=== PATIENT | male | born 1950 | race Hispanic/Latino ===

== ENCOUNTER → 2021-01-02 | Outpatient (CLI) | payer OTHER, MEDICARE ==
[~2021-01-02] VITALS: Ht 165.1 cm; Wt 79.4 kg
[2021-01-02] MEDS: REGADENOSON 0.4 MG/5 ML PF SYG IVP SCH (15:06)
== END | disposition home or self-care (01) ==
LOC: SHCH 08:53
PROVIDERS: ATTEND Internal Medicine Cardiovascular Disease
DX: R06.09 Other forms of dyspnea (principal)
CPT/HCPCS: 78452; 93017; 96374; A9500 ×2; J2785

== ENCOUNTER 2021-03-13 07:29 | Inpatient (IN) | payer OTHER, MEDICARE ==
[2021-03-09 10:11] LABS: BASOPHILS % (AUTO) 0.8 % (0.0-5.0); EOSINOPHILS % (AUTO) 3.6 % (0.0-8.0); HEMATOCRIT 43.7 % (42-54); MEAN CORPUSCULAR HEMOGLOBIN 31.8 pg (27.0-33.0); MEAN CORPUSCULAR HGB CONC 34.1 g/dL (32.0-36.0); MEAN CORPUSCULAR VOLUME 93.2 fL (79-99); MONOCYTES % (AUTO) 9.1 % (3.0-13.0); NEUTROPHILS % (AUTO) 54.1 % (40.0-77.0); PLATELET COUNT (AUTO) 238 K/uL (130-400); RED BLOOD CELL COUNT(AUTO) 4.69 MIL/uL (4.50-6.20); RED CELL DISTRIBUTION WIDTH 13.6 % (11.0-15.5); WHITE BLOOD COUNT (AUTO) 7.6 K/uL (4.8-10.8)
[2021-03-09 10:12] LABS: APPEARANCE,URINE Clear (CLEAR); BILIRUBIN,URINE Negative (NEGATIVE); COLOR,URINE Yellow (YELLOW); GLUCOSE, URINE (UA) Negative (NEGATIVE); KETONES,URINE Trace mg/dL (NEGATIVE); LEUKOCYTE ESTERASE ,URINE Negative (NEGATIVE); NITRATE,URINE Negative (NEGATIVE); OCCULT BLOOD,URINE Negative (NEGATIVE); PROTEIN,URINE Negative (NEGATIVE)
[2021-03-09 10:32] LABS: PROTHROMBIN TIME 10.9 SEC (9.6-11.6)
[2021-03-09 10:33] LABS: PARTIAL THROMBOPLASTIN TIME 25.8 SEC (26.3-35.5)
[2021-03-09 10:34] LABS: CREATININE 1.1 mg/dL (0.5-1.5)
[2021-03-09 10:37] LABS: BACTERIA,URINE Rare /HPF (None Seen); RBC,URINE None Seen /HPF (0-1)
[2021-03-09 10:38] LABS: SQUAMOUS EPITHELIAL CELL,UR None Seen /HPF (0-2); WBC,URINE 0-1 /HPF (0-1)
[2021-03-12 09:55] VITALS: BP 158/76
[2021-03-13] VITALS (19 sets, daily range): BP systolic 108–250; BP diastolic 53–128
[~2021-03-13] VITALS: Ht 165.1 cm; Wt 75.3 kg
[~2021-03-13 07:29] MED LIST: 0.9% NACL 500ML IV.SOLN 500 ML IV SCH; AEC81 PO; ATOR40TA71 PO; IOHEXOL-350 75 ML VIAL IV ONE; ISOS30TA11 PO; LEVO50CA4 PO; LISI40TA9 PO; METO25TA6 PO; OMEP40CA21 PO
[2021-03-13] MEDS ORDERED: 0.9%NACL 1000ML 1,000 ML IV ONE (09:19)
[2021-03-13] MEDS ORDERED: NICARDIPINE 25MG INJ IV ONE (10:15)
[2021-03-13] MEDS ORDERED: NITROGLYCERIN 2 MG VIAL IV ONE (10:15)
[2021-03-13] MEDS ORDERED: SODIUM BICARB 50MEQ 50ML VIAL 50 ML ONE (10:15)
[2021-03-13] MEDS ORDERED: HEPARIN 10,000 UNIT/10ML (1,000 UNIT/ML) VIAL ONE ×3 (10:15→15:46)
[2021-03-13] MEDS ORDERED: IOHEXOL 350 MG/ML 100ML INFUS..BTL IV ONE (10:16)
[2021-03-13] MEDS ORDERED: LIDOCAINE HCL 400MG/20ML VIAL ONE (10:16)
[2021-03-13] MEDS ORDERED: MIDAZOLAM HCL 1 MG/ML 2ML VIAL ONE ×2 (10:48→14:21)
[2021-03-13] MEDS ORDERED: FENTANYL CITRATE PF 50 MCG/1 ML 2ML VIAL ONE (10:49)
[2021-03-13] MEDS ORDERED: 0.9%NACL 1000ML 1,000 ML IV SCH ×2 (12:00→18:00)
[2021-03-13] MEDS ORDERED: NITROGLYCERIN 0.4 MG SL TAB SL PRN (12:00)
[2021-03-13] MEDS ORDERED: CEFAZOLIN SODIUM 1 GM VIAL IVP PRN (13:30)
[2021-03-13] MEDS ORDERED: NOREPINEPHRINE BITARTRATE 8 MG in DEXTROSE 5%-WATER 250 ML IV PRN (13:30)
[2021-03-13] MEDS ORDERED: AMINOCAPROIC ACID 5,000MG VIAL 15,000 MG in 0.9% NACL 500ML IV.SOLN 420 ML IV PRN (13:30)
[2021-03-13] MEDS ORDERED: EPINEPHRINE PF 1MG AMP 10 MG in 0.9% NACL 250ML 240 ML IV PRN (13:30)
[2021-03-13] MEDS ORDERED: PAPAVERINE HCL 30 MG/ML 2ML VIAL ONE (13:45)
[2021-03-13] MEDS ORDERED: CEFAZOLIN SODIUM 1 GM VIAL ONE ×2 (13:45→15:16)
[2021-03-13 13:54] LABS: HEMATOCRIT 39.9 % (42-54); MEAN CORPUSCULAR HEMOGLOBIN 31.8 pg (27.0-33.0); MEAN CORPUSCULAR HGB CONC 34.8 g/dL (32.0-36.0); MEAN CORPUSCULAR VOLUME 91.3 fL (79-99); RED BLOOD CELL COUNT(AUTO) 4.37 MIL/uL (4.50-6.20); RED CELL DISTRIBUTION WIDTH 13.6 % (11.0-15.5); WHITE BLOOD COUNT (AUTO) 7.6 K/uL (4.8-10.8)
[2021-03-13 14:06] LABS: INR 1.09 (0.85-1.15); PROTHROMBIN TIME 11.8 SEC (9.6-11.6)
[2021-03-13 14:08] LABS: PARTIAL THROMBOPLASTIN TIME 41.3 SEC (26.3-35.5)
[2021-03-13 14:13] LABS: HEMOGLOBIN A1C 5.9 % (4.0-6.0)
[2021-03-13 14:14] LABS: ALBUMIN 3.7 g/dL (3.5-5.0); BILIRUBIN,TOTAL 0.8 mg/dL (0.2-1.0); CREATININE 1.1 mg/dL (0.5-1.5); POTASSIUM 3.8 mmol/L (3.5-5.1)
[2021-03-13] MEDS ORDERED: PROTAMINE SULFATE 10 MG/ML 25ML VIAL IV ONE (14:20)
[2021-03-13] MEDS ORDERED: ESMOLOL HCL 10 MG/ML 10 ML VIAL ONE (14:20)
[2021-03-13] MEDS ORDERED: SODIUM BICARB 50MEQ 50ML VIAL 150 ML ONE (14:20)
[2021-03-13] MEDS ORDERED: AMINOCAPROIC ACID 5,000MG VIAL ONE (14:20)
[2021-03-13] MEDS ORDERED: EPINEPHRINE PF 1MG AMP ONE (14:20)
[2021-03-13] MEDS ORDERED: NOREPINEPHRINE BITARTRATE 1 MG/1 ML ML IV ONE (14:20)
[2021-03-13] MEDS ORDERED: LIDOCAINE PF 100MG/5ML (2%) SYRINGE 5ML ONE ×2 (14:20→14:21)
[2021-03-13] MEDS ORDERED: FENTANYL CITRATE PF 50 MCG/1 ML 20ML VIAL IJ ONE (14:21)
[2021-03-13] MEDS ORDERED: SUCCINYLCHOLINE CHLORIDE 20 MG/ML 10 ML VIAL ONE (14:21)
[2021-03-13] MEDS ORDERED: ETOMIDATE 20MG VIAL ONE (14:21)
[2021-03-13] MEDS ORDERED: PROPOFOL 10 MG/ML 20ML VIAL IV ONE (14:21)
[2021-03-13] MEDS ORDERED: ROCURONIUM 10MG/1ML SYR 10 MG/ML ML ONE (14:21)
[2021-03-13] MEDS ORDERED: SODIUM BICARB 50MEQ 50ML VIAL 300 ML ONE (14:22)
[2021-03-13] MEDS ORDERED: AMIODARONE 150MG VIAL ONE (15:15)
[2021-03-13] MEDS ORDERED: GLYCOPYRROLATE 1 MG/5 ML SYRINGE ONE (15:40)
[2021-03-13] MEDS ORDERED: ATROPINE 0.4MG VIAL IJ ONE (15:40)
[2021-03-13 15:42] LABS: ABG BASE EXCESS -2.9 mmol/L (-2.0-3.0); ABG HCO3 24.5 mmol/L (21.0-28.0); ABG OXYGEN SATURATION 99.5 % (95.0-99.0); ABG PCO2 53 mmHg (35-48)
[2021-03-13] MEDS ORDERED: VASOPRESSIN 20 UNITS/ML 1ML VIAL ONE (16:32)
[2021-03-13 17:57] LABS: ABG BASE EXCESS -0.7 mmol/L (-2.0-3.0); ABG HCO3 22.2 mmol/L (21.0-28.0); ABG OXYGEN SATURATION 98.9 % (95.0-99.0); ABG PCO2 31 mmHg (35-48)
[2021-03-13] MEDS ORDERED: 0.9%NACL 10ML VIAL IVP PRN (18:00)
[2021-03-13] MEDS ORDERED: ASPIRIN 81MG CHEW TAB NG ONE (18:00)
[2021-03-13] MEDS ORDERED: ONDANSETRON 4MG INJ IV PRN (18:00)
[2021-03-13] MEDS ORDERED: PROPOFOL 1000 MG/100 ML 100 ML IV PRN (18:00)
[2021-03-13] MEDS ORDERED: NITROGLYCERIN 50MG/D5W 250ML 250 BOT IV SCH (18:00)
[2021-03-13] MEDS ORDERED: MORPHINE 2 MG SYG IV PRN (18:00)
[2021-03-13] MEDS ORDERED: AMINOCAPROIC ACID 5,000MG VIAL 15,000 MG in 0.9% NACL 250ML 250 ML IV SCH (18:00)
[2021-03-13] MEDS ORDERED: INSULIN REGULAR, HUMAN 3ML 100 UNIT in 0.9%NACL 100ML 99 ML IV SCH ×2 (18:00)
[2021-03-13] MEDS ORDERED: ACETAMINOPHEN 650 MG SUPPOSITORY RC PRN (18:00)
[2021-03-13] MEDS ORDERED: 0.9% NACL 500ML IV.SOLN 500 ML IV SCH (18:00)
[2021-03-13] MEDS ORDERED: DEXTROSE 50%-WATER 50 ML DISP.SYRIN IV PRN (18:00)
[2021-03-13] MEDS ORDERED: ALBUMIN (HUMAN) 5% 250 ML IV PRN (18:00)
[2021-03-13] MEDS ORDERED: GLUCAGON 1MG KIT 1 MG ML IM PRN (18:00)
[2021-03-13] MEDS ORDERED: TRAMADOL HCL 50 MG TABLET PO PRN (18:00)
[2021-03-13] MEDS ORDERED: POTASSIUM PHOS 15 mMOL+NS250ML 250 ML IV PRN (18:00)
[2021-03-13] MEDS ORDERED: EPINEPHRINE PF 1MG AMP 10 MG in DEXTROSE 5%-WATER 250 ML IV PRN (18:00)
[2021-03-13] MEDS ORDERED: NOREPINEPHRIN 4MG/NS 250ML 250 ML IV PRN (18:00)
[2021-03-13 18:40] LABS: HEMATOCRIT 34.6 % (42-54); MEAN CORPUSCULAR HEMOGLOBIN 31.9 pg (27.0-33.0); MEAN CORPUSCULAR HGB CONC 35.3 g/dL (32.0-36.0); MEAN CORPUSCULAR VOLUME 90.6 fL (79-99); RED BLOOD CELL COUNT(AUTO) 3.82 MIL/uL (4.50-6.20); RED CELL DISTRIBUTION WIDTH 13.5 % (11.0-15.5); WHITE BLOOD COUNT (AUTO) 12.5 K/uL (4.8-10.8)
[2021-03-13 18:56] LABS: CREATININE 1.1 mg/dL (0.5-1.5); INR 1.2 (0.85-1.15); MAGNESIUM 1.4 mg/dL (1.80-2.40); PHOSPHORUS 3.9 mg/dL (2.5-4.9); POTASSIUM 3.4 mmol/L (3.5-5.1); PROTHROMBIN TIME 12.9 SEC (9.6-11.6)
[2021-03-13 18:57] LABS: PARTIAL THROMBOPLASTIN TIME 23.1 SEC (26.3-35.5)
[2021-03-13 19:01] LABS: ABG BASE EXCESS -2.1 mmol/L (-2.0-3.0); ABG HCO3 21.6 mmol/L (21.0-28.0); ABG OXYGEN SATURATION 98.5 % (95.0-99.0); ABG PCO2 34 mmHg (35-48)
[2021-03-13] MEDS: MORPHINE 2 MG SYG IV PRN ×3 (19:09→23:52)
[2021-03-13] MEDS ORDERED: NICARDIPINE 25MG INJ 100 MG in 0.9%NACL 100ML 60 ML IV SCH (19:30)
[2021-03-13] MEDS: POTASSIUM CHLORIDE 20MEQ/100ML 100 ML IV PRN ×3 (19:39→23:49)
[2021-03-13] MEDS: SODIUM BICARB 50MEQ 50ML VIAL IV PRN ×3 (19:55→21:14)
[2021-03-13] MEDS: MAGNESIUM 2GM PREMIX 50ML 50 ML IV PRN ×2 (20:23→23:01)
[2021-03-13] MEDS ORDERED: ASPIRIN 81MG CHEW TAB ONE (20:24)
[2021-03-13] MEDS: FAMOTIDINE 20MG VIAL IV SCH (20:25)
[2021-03-13] MEDS: ATORVASTATIN 40 MG TABLET PO SCH (20:25)
[2021-03-13] MEDS: ACETAMINOPHEN 325 MG TAB PO PRN (20:40)
[2021-03-13 20:56] LABS: ABG BASE EXCESS -1.2 mmol/L (-2.0-3.0); ABG HCO3 24.1 mmol/L (21.0-28.0); ABG PCO2 42 mmHg (35-48)
[2021-03-13] MEDS ORDERED: METOPROLOL TARTRATE 25 MG TAB PO SCH (21:00)
[2021-03-13] MEDS ORDERED: CALCIUM GLUC 1GM/10ML VIAL ONE ×2 (21:11→23:56)
[2021-03-13] MEDS: CALCIUM GLUC 1GM 1 GM in 0.9%NACL 50ML 50 ML IV PRN ×3 (21:22→23:57)
[2021-03-13] MEDS ORDERED: ALBUMIN (HUMAN) 5% 250 ML IV ONE (21:57)
[2021-03-13 22:30] LABS: ABG HCO3 26.1 mmol/L (21.0-28.0); ABG PCO2 39 mmHg (35-48)
[2021-03-13 22:33] LABS: ABG BASE EXCESS 2.2 mmol/L (-2.0-3.0); ABG PCO2 38 mmHg (35-48)
[2021-03-13] MEDS: CEFAZOLIN SODIUM 1 GM VIAL IV SCH (22:47)
[2021-03-13 23:39] LABS: ABG BASE EXCESS -0.7 mmol/L (-2.0-3.0); ABG HCO3 24.5 mmol/L (21.0-28.0); ABG OXYGEN SATURATION 97.9 % (95.0-99.0); ABG PCO2 42 mmHg (35-48)
[2021-03-14] VITALS (35 sets, daily range): BP systolic 101–176; BP diastolic 53–84
[2021-03-14 00:38] LABS: ABG BASE EXCESS 0.9 mmol/L (-2.0-3.0); ABG HCO3 26.4 mmol/L (21.0-28.0); ABG OXYGEN SATURATION 97.4 % (95.0-99.0); ABG PCO2 46 mmHg (35-48)
[2021-03-14 01:40] LABS: ABG BASE EXCESS 0.5 mmol/L (-2.0-3.0); ABG OXYGEN SATURATION 96.1 % (95.0-99.0); ABG PCO2 45 mmHg (35-48)
[2021-03-14] MEDS: POTASSIUM CHLORIDE 20MEQ/100ML 100 ML IV PRN ×2 (01:44→04:23)
[2021-03-14 02:45] LABS: ABG BASE EXCESS 0.5 mmol/L (-2.0-3.0); ABG HCO3 25.4 mmol/L (21.0-28.0); ABG OXYGEN SATURATION 97.6 % (95.0-99.0); ABG PCO2 42 mmHg (35-48)
[2021-03-14] MEDS: CALCIUM GLUC 1GM 1 GM in 0.9%NACL 50ML 50 ML IV PRN (02:59)
[2021-03-14 04:02] LABS: ABG BASE EXCESS -1.5 mmol/L (-2.0-3.0); ABG HCO3 23.7 mmol/L (21.0-28.0); ABG OXYGEN SATURATION 97.8 % (95.0-99.0); ABG PCO2 42 mmHg (35-48)
[2021-03-14 04:10] LABS: ABG BASE EXCESS -0.5 mmol/L (-2.0-3.0); ABG OXYGEN SATURATION 97.8 % (95.0-99.0); ABG PCO2 45 mmHg (35-48)
[2021-03-14] MEDS: TRAMADOL HCL 50 MG TABLET PO PRN ×2 (04:10→09:07)
[2021-03-14 04:23] LABS: INR 1.09 (0.85-1.15); PROTHROMBIN TIME 11.8 SEC (9.6-11.6)
[2021-03-14 04:25] LABS: BASOPHILS % (AUTO) 0.4 % (0.0-5.0); EOSINOPHILS % (AUTO) 0.1 % (0.0-8.0); HEMATOCRIT 35.4 % (42-54); LYMPHOCYTES % (AUTO) 8.8 % (21.0-51.0); MEAN CORPUSCULAR HEMOGLOBIN 31.9 pg (27.0-33.0); MEAN CORPUSCULAR HGB CONC 33.9 g/dL (32.0-36.0); MEAN CORPUSCULAR VOLUME 94.1 fL (79-99); MONOCYTES % (AUTO) 10.8 % (3.0-13.0); NEUTROPHILS % (AUTO) 79.5 % (40.0-77.0); PLATELET COUNT (AUTO) 161 K/uL (130-400); RED BLOOD CELL COUNT(AUTO) 3.76 MIL/uL (4.50-6.20); RED CELL DISTRIBUTION WIDTH 14.1 % (11.0-15.5); WHITE BLOOD COUNT (AUTO) 9.1 K/uL (4.8-10.8)
[2021-03-14 04:31] LABS: ALBUMIN 3.7 g/dL (3.5-5.0); CREATININE 1.2 mg/dL (0.5-1.5); MAGNESIUM 2.3 mg/dL (1.80-2.40); PHOSPHORUS 2.8 mg/dL (2.5-4.9); POTASSIUM 4.1 mmol/L (3.5-5.1); TOTAL PROTEIN, SERUM 6.4 g/dL (6.0-8.3)
[2021-03-14] MEDS: ACETAMINOPHEN 325 MG TAB PO PRN ×2 (05:09→08:18)
[2021-03-14] MEDS ORDERED: HYDROCODONE/ACETAMINOPHEN 7.5/325 MG TAB ONE (06:21)
[2021-03-14] MEDS: CEFAZOLIN SODIUM 1 GM VIAL IV SCH ×2 (06:26→15:05)
[2021-03-14] MEDS: METOPROLOL TARTRATE 25 MG TAB PO SCH ×2 (08:16→19:56)
[2021-03-14] MEDS: FUROSEMIDE 20 MG TABLET PO SCH ×2 (08:16→17:18)
[2021-03-14] MEDS: ASPIRIN 81 MG EC TAB PO SCH (08:16)
[2021-03-14] MEDS: LEVOTHYROXINE 50 MCG TABLET PO SCH (08:16)
[2021-03-14] MEDS: FAMOTIDINE 20MG VIAL IV SCH ×2 (08:16→19:56)
[2021-03-14] MEDS ORDERED: ISOSORBIDE DINITRATE 20MG TAB PO SCH (09:00)
[2021-03-14] MEDS ORDERED: LISINOPRIL 40 MG TABLET PO SCH (09:00)
[2021-03-14] MEDS ORDERED: PANTOPRAZOLE 40 MG TAB DR PO SCH (09:00)
[2021-03-14] MEDS: HYDROCODONE/ACETAMINOPHEN 7.5/325 MG TAB PO PRN ×3 (10:20→20:55)
[2021-03-14] MEDS ORDERED: GABAPENTIN 300 MG CAPSULE ONE (11:07)
[2021-03-14] MEDS ORDERED: GABAPENTIN 300 MG CAPSULE PO SCH ×2 (11:30→21:00)
[2021-03-14] MEDS ORDERED: KETOROLAC 15MG/ML VIAL (15MG/ML) ONE (13:46)
[2021-03-14] MEDS ORDERED: KETOROLAC 15MG/ML VIAL (15MG/ML) IV ONE (15:00)
[2021-03-14 16:45] LABS: POTASSIUM 4.4 mmol/L (3.5-5.1)
[2021-03-14] MEDS: ATORVASTATIN 40 MG TABLET PO SCH (19:56)
[2021-03-14] MEDS ORDERED: FUROSEMIDE 20MG VIAL ONE (21:40)
[2021-03-14] MEDS ORDERED: FUROSEMIDE 20MG VIAL IV SCH (22:00)
[2021-03-15] VITALS (32 sets, daily range): BP systolic 91–157; BP diastolic 52–80
[2021-03-15] MEDS: HYDROCODONE/ACETAMINOPHEN 7.5/325 MG TAB PO PRN ×2 (01:16→20:19)
[2021-03-15 04:17] LABS: HEMATOCRIT 34.4 % (42-54); MEAN CORPUSCULAR HEMOGLOBIN 31.9 pg (27.0-33.0); MEAN CORPUSCULAR HGB CONC 33.4 g/dL (32.0-36.0); MEAN CORPUSCULAR VOLUME 95.6 fL (79-99); RED BLOOD CELL COUNT(AUTO) 3.6 MIL/uL (4.50-6.20); RED CELL DISTRIBUTION WIDTH 13.8 % (11.0-15.5); WHITE BLOOD COUNT (AUTO) 11.3 K/uL (4.8-10.8)
[2021-03-15 04:30] LABS: CREATININE 1.2 mg/dL (0.5-1.5); POTASSIUM 4.1 mmol/L (3.5-5.1)
[2021-03-15] MEDS: LEVOTHYROXINE 50 MCG TABLET PO SCH (08:42)
[2021-03-15] MEDS: GABAPENTIN 300 MG CAPSULE PO SCH ×4 (08:42→20:19)
[2021-03-15] MEDS: ASPIRIN 81 MG EC TAB PO SCH (08:42)
[2021-03-15] MEDS: FAMOTIDINE 20MG VIAL IV SCH ×2 (08:42→20:19)
[2021-03-15] MEDS: METOPROLOL TARTRATE 25 MG TAB PO SCH ×2 (08:42→20:19)
[2021-03-15] MEDS: FUROSEMIDE 20 MG TABLET PO SCH ×2 (08:43→16:44)
[2021-03-15] MEDS: ACETAMINOPHEN 325 MG TAB PO PRN (12:47)
[2021-03-15] MEDS: ENOXAPARIN SODIUM 30 MG/0.3 ML SQ SCH (12:47)
[2021-03-15] MEDS: ATORVASTATIN 40 MG TABLET PO SCH (20:19)
[2021-03-16] VITALS (11 sets, daily range): BP systolic 119–153; BP diastolic 75–91
[2021-03-16] MEDS: HYDROCODONE/ACETAMINOPHEN 7.5/325 MG TAB PO PRN ×2 (01:16→20:34)
[2021-03-16 03:25] LABS: HEMATOCRIT 32.2 % (42-54); MEAN CORPUSCULAR HEMOGLOBIN 32.7 pg (27.0-33.0); MEAN CORPUSCULAR HGB CONC 34.5 g/dL (32.0-36.0); RED BLOOD CELL COUNT(AUTO) 3.39 MIL/uL (4.50-6.20); RED CELL DISTRIBUTION WIDTH 13.6 % (11.0-15.5); RETICULOCYTE % (AUTO) 2.23 % (0.42-2.23); WHITE BLOOD COUNT (AUTO) 10.2 K/uL (4.8-10.8)
[2021-03-16 03:48] LABS: CREATININE 1.1 mg/dL (0.5-1.5); POTASSIUM 3.7 mmol/L (3.5-5.1)
[2021-03-16 03:58] LABS: % IRON SATURATION 14.7 % (30-44)
[2021-03-16] MEDS ORDERED: FAMOTIDINE 20MG TAB ONE (07:54)
[2021-03-16] MEDS: ASPIRIN 81 MG EC TAB PO SCH (08:12)
[2021-03-16] MEDS: FUROSEMIDE 20 MG TABLET PO SCH ×2 (08:12→16:51)
[2021-03-16] MEDS: FAMOTIDINE 20MG VIAL IV SCH ×2 (08:12→20:33)
[2021-03-16] MEDS ORDERED: KCL 20 MEQ ERTAB PO ONE ×2 (08:14→16:00)
[2021-03-16] MEDS: LEVOTHYROXINE 50 MCG TABLET PO SCH (08:14)
[2021-03-16] MEDS: METOPROLOL TARTRATE 25 MG TAB PO SCH ×2 (08:14→20:30)
[2021-03-16] MEDS: GABAPENTIN 300 MG CAPSULE PO SCH ×3 (08:14→20:29)
[2021-03-16] MEDS: ENOXAPARIN SODIUM 30 MG/0.3 ML SQ SCH (08:15)
[2021-03-16] MEDS: ACETAMINOPHEN 325 MG TAB PO PRN (16:51)
[2021-03-16] MEDS: ATORVASTATIN 40 MG TABLET PO SCH (20:29)
[2021-03-17] VITALS: BP 147/81
[2021-03-17 04:00] VITALS: BP 150/87
[2021-03-17 05:20] LABS: HEMATOCRIT 33.8 % (42-54); MEAN CORPUSCULAR HGB CONC 34.3 g/dL (32.0-36.0); MEAN CORPUSCULAR VOLUME 93.1 fL (79-99); RED BLOOD CELL COUNT(AUTO) 3.63 MIL/uL (4.50-6.20); RED CELL DISTRIBUTION WIDTH 13.2 % (11.0-15.5); WHITE BLOOD COUNT (AUTO) 8.9 K/uL (4.8-10.8)
[2021-03-17 05:42] LABS: CREATININE 1.1 mg/dL (0.5-1.5); POTASSIUM 3.6 mmol/L (3.5-5.1)
[2021-03-17] MEDS ORDERED: KCL 20 MEQ ERTAB PO PRN (06:30)
[2021-03-17] MEDS: HYDROCODONE/ACETAMINOPHEN 7.5/325 MG TAB PO PRN (06:30)
[2021-03-17 08:00] VITALS: BP 149/86
[2021-03-17] MEDS ORDERED: ZOSYN 3.375GM +NS 50ML IV SCH (08:30)
[2021-03-17] MEDS ORDERED: VANCOMYCIN PROTOCOL PER PHARMACY IV SCH (09:30)
[2021-03-17] MEDS: FUROSEMIDE 20 MG TABLET PO SCH ×2 (09:33→16:43)
[2021-03-17] MEDS: METOPROLOL TARTRATE 25 MG TAB PO SCH ×2 (09:33→21:30)
[2021-03-17] MEDS: ASPIRIN 81 MG EC TAB PO SCH (09:33)
[2021-03-17] MEDS: FAMOTIDINE 20MG VIAL IV SCH ×2 (09:33→21:29)
[2021-03-17] MEDS: LEVOTHYROXINE 50 MCG TABLET PO SCH (09:33)
[2021-03-17] MEDS: GABAPENTIN 300 MG CAPSULE PO SCH ×3 (09:33→21:34)
[2021-03-17] MEDS: ENOXAPARIN SODIUM 30 MG/0.3 ML SQ SCH (09:37)
[2021-03-17 12:00] VITALS: BP 160/84
[2021-03-17] MEDS: ZOSYN 3.375GM+NS 50ML 50 ML IV SCH ×2 (12:14→21:32)
[2021-03-17 16:00] VITALS: BP 135/82
[2021-03-17] MEDS: ACETAMINOPHEN 325 MG TAB PO PRN (18:34)
[2021-03-17 20:00] VITALS: BP 152/85
[2021-03-17] MEDS: ATORVASTATIN 40 MG TABLET PO SCH (21:29)
[2021-03-18] VITALS: BP 168/91
[2021-03-18 04:00] VITALS: BP 167/83
[2021-03-18 05:17] LABS: HEMATOCRIT 33.8 % (42-54); MEAN CORPUSCULAR HEMOGLOBIN 31.4 pg (27.0-33.0); MEAN CORPUSCULAR HGB CONC 34.6 g/dL (32.0-36.0); MEAN CORPUSCULAR VOLUME 90.6 fL (79-99); RED BLOOD CELL COUNT(AUTO) 3.73 MIL/uL (4.50-6.20); RED CELL DISTRIBUTION WIDTH 13.2 % (11.0-15.5)
[2021-03-18 05:25] LABS: POTASSIUM 3.3 mmol/L (3.5-5.1)
[2021-03-18] MEDS: POTASSIUM CHLORIDE 10% ELIXIR 20 MEQ/15 ML UDCUP PO PRN ×4 (05:44→16:46)
[2021-03-18] MEDS: ZOSYN 3.375GM+NS 50ML 50 ML IV SCH ×3 (05:45→21:26)
[2021-03-18 07:30] VITALS: BP 158/87
[2021-03-18] MEDS ORDERED: VANCOMYCIN 750MG VIAL IVPB SCH (09:00)
[2021-03-18] MEDS: FUROSEMIDE 20 MG TABLET PO SCH ×2 (09:49→16:45)
[2021-03-18] MEDS: LEVOTHYROXINE 50 MCG TABLET PO SCH (09:49)
[2021-03-18] MEDS: ENOXAPARIN SODIUM 30 MG/0.3 ML SQ SCH (09:49)
[2021-03-18] MEDS: FAMOTIDINE 20MG VIAL IV SCH ×2 (09:49→21:27)
[2021-03-18] MEDS: METOPROLOL TARTRATE 25 MG TAB PO SCH ×2 (09:49→21:26)
[2021-03-18] MEDS: ASPIRIN 81 MG EC TAB PO SCH (09:50)
[2021-03-18] MEDS: GABAPENTIN 300 MG CAPSULE PO SCH ×3 (09:50→21:27)
[2021-03-18 11:38] VITALS: BP 145/81
[2021-03-18 15:56] VITALS: BP 166/84
[2021-03-18 20:00] VITALS: BP 148/86
[2021-03-18] MEDS: VANCOMYCIN 750MG VIAL IVPB SCH (21:26)
[2021-03-18] MEDS: 0.9% NACL 250ML 250 ML IV SCH (21:26)
[2021-03-18] MEDS: ATORVASTATIN 40 MG TABLET PO SCH (21:27)
[2021-03-19] VITALS (7 sets, daily range): BP systolic 127–148; BP diastolic 75–86
[2021-03-19] MEDS: ZOSYN 3.375GM+NS 50ML 50 ML IV SCH ×3 (06:08→21:57)
[2021-03-19] MEDS: ASPIRIN 81 MG EC TAB PO SCH (09:28)
[2021-03-19] MEDS: FUROSEMIDE 20 MG TABLET PO SCH ×2 (09:28→17:31)
[2021-03-19] MEDS: LEVOTHYROXINE 50 MCG TABLET PO SCH (09:28)
[2021-03-19] MEDS: GABAPENTIN 300 MG CAPSULE PO SCH ×3 (09:29→21:57)
[2021-03-19] MEDS: VANCOMYCIN 750MG VIAL IVPB SCH ×2 (09:29→21:57)
[2021-03-19] MEDS: METOPROLOL TARTRATE 25 MG TAB PO SCH ×2 (09:29→21:57)
[2021-03-19] MEDS: 0.9% NACL 250ML 250 ML IV SCH ×2 (09:29→21:57)
[2021-03-19] MEDS: FAMOTIDINE 20MG VIAL IV SCH (09:29)
[2021-03-19] MEDS: ENOXAPARIN SODIUM 30 MG/0.3 ML SQ SCH (09:40)
[2021-03-19] MEDS: ATORVASTATIN 40 MG TABLET PO SCH (21:57)
[2021-03-19] MEDS: FAMOTIDINE 20MG TAB PO SCH (21:57)
[2021-03-20 03:50] VITALS: BP 132/81
[2021-03-20 04:33] LABS: MEAN CORPUSCULAR HGB CONC 34.4 g/dL (32.0-36.0); MEAN CORPUSCULAR VOLUME 92.9 fL (79-99); RED BLOOD CELL COUNT(AUTO) 3.66 MIL/uL (4.50-6.20); RED CELL DISTRIBUTION WIDTH 13.2 % (11.0-15.5); WHITE BLOOD COUNT (AUTO) 8.6 K/uL (4.8-10.8)
[2021-03-20 05:11] LABS: ALBUMIN 2.8 g/dL (3.5-5.0); CREATININE 1.1 mg/dL (0.5-1.5); MAGNESIUM 2.3 mg/dL (1.80-2.40); PHOSPHORUS 3.9 mg/dL (2.5-4.9); POTASSIUM 3.6 mmol/L (3.5-5.1)
[2021-03-20] MEDS: ZOSYN 3.375GM+NS 50ML 50 ML IV SCH ×2 (05:13→13:28)
[2021-03-20 07:00] VITALS: BP_SYST 131; BP_SYST 162; BP_DIAS 71; BP_DIAS 82
[2021-03-20] MEDS ORDERED: LISI10TA24 PO (08:05)
[2021-03-20] MEDS ORDERED: GABA300C PO (08:05)
[2021-03-20] MEDS ORDERED: METO25 PO (08:05)
[2021-03-20] MEDS ORDERED: FURO20TA6 PO (08:05)
[2021-03-20] MEDS: 0.9% NACL 250ML 250 ML IV SCH (08:56)
[2021-03-20] MEDS: VANCOMYCIN 750MG VIAL IVPB SCH (08:56)
[2021-03-20] MEDS: LEVOTHYROXINE 50 MCG TABLET PO SCH (09:03)
[2021-03-20] MEDS: ASPIRIN 81 MG EC TAB PO SCH (09:04)
[2021-03-20] MEDS: FUROSEMIDE 20 MG TABLET PO SCH (09:04)
[2021-03-20] MEDS: FAMOTIDINE 20MG TAB PO SCH (09:04)
[2021-03-20] MEDS: GABAPENTIN 300 MG CAPSULE PO SCH ×2 (09:04→13:28)
[2021-03-20] MEDS: METOPROLOL TARTRATE 25 MG TAB PO SCH (09:04)
[2021-03-20] MEDS: ENOXAPARIN SODIUM 30 MG/0.3 ML SQ SCH (09:05)
[2021-03-20] MEDS: POTASSIUM CHLORIDE 10% ELIXIR 20 MEQ/15 ML UDCUP PO PRN ×2 (09:05→10:54)
[2021-03-20] MEDS: ACETAMINOPHEN 325 MG TAB PO PRN (09:06)
[2021-03-20 11:00] VITALS: BP 132/78
[2021-03-20] MEDS ORDERED: LISINOPRIL 10 MG TABLET PO SCH ×2 (15:19)
== END 2021-03-20 15:30 | disposition home health service (06) | DRG 233 ==
LOC: DAH 07:29 → DAHIP 07:30 → DAH 07:30 → 2CV 15:02 → 2CH 03-14 05:44 → 4DH 03-16 16:48
PROVIDERS: ADMIT Internal Medicine; ATTEND Internal Medicine
PROC: 06BQ4ZZ Excision of Left Saphenous Vein, Percutaneous Endoscopic Approach (ICD-10-PCS; 2021-03-13)
PROC: B2111ZZ Fluoroscopy of Multiple Coronary Arteries using Low Osmolar Contrast (ICD-10-PCS; 2021-03-13)
PROC: B2151ZZ Fluoroscopy of Left Heart using Low Osmolar Contrast (ICD-10-PCS; 2021-03-13)
PROC: 02100Z9 Bypass Coronary Artery, One Artery from Left Internal Mammary, Open Approach (ICD-10-PCS; principal; 2021-03-13 12:55)
PROC: 4A023N7 Measurement of Cardiac Sampling and Pressure, Left Heart, Percutaneous Approach (ICD-10-PCS; 2021-03-13 12:55)
PROC: 021209W Bypass Coronary Artery, Three Arteries from Aorta with Autologous Venous Tissue, Open Approach (ICD-10-PCS; 2021-03-13 12:55)
DX: I25.119 Atherosclerotic heart disease of native coronary artery with unspecified angina pectoris (principal); J95.1 Acute pulmonary insufficiency following thoracic surgery; N17.9 Acute kidney failure, unspecified; I10 Essential (primary) hypertension; E78.00 Pure hypercholesterolemia, unspecified; E03.9 Hypothyroidism, unspecified; E78.5 Hyperlipidemia, unspecified; D72.829 Elevated white blood cell count, unspecified; R09.02 Hypoxemia; R06.89 Other abnormalities of breathing; Z96.649 Presence of unspecified artificial hip joint; I25.2 Old myocardial infarction; Z79.82 Long term (current) use of aspirin; Z79.899 Other long term (current) drug therapy; Z95.2 Presence of prosthetic heart valve; Z87.891 Personal history of nicotine dependence; Z95.5 Presence of coronary angioplasty implant and graft; Z83.3 Family history of diabetes mellitus; Z82.49 Family history of ischemic heart disease and other diseases of the circulatory system; Y83.8 Other surgical procedures as the cause of abnormal reaction of the patient, or of later complication, without mention of misadventure at the time of the procedure; Y92.89 Other specified places as the place of occurrence of the external cause
CPT/HCPCS: 36415; 71045; 80048; 80053; 80061; 80202; 81001; 82040; 82435; 82607; 82728; 82746; 82803; 82947; 82948; 83036; 83540; 83550; 83605; 83735; 83880; 84100; 84132; 84145; 84295; 85018; 85025; 85027; 85045; 85347; 85610; 85730; 86850; 86900; 86901; 86923; 87040; 93005; 93458; 93880; 94002; 94003; 94150; 94640; 97039; 99156; 99157; A4606; A7048; C1769; G0378; J0171; J0282; J0330; J0461; J0610; J0690; J1644; J1650; J1815; J1885; J1940; J2001; J2250; J2405; J2440; J2543; J2704; J2720; J3010; J3475; J3480; J3490; J7030; J7040; J7120; P9045; Q9967

== ENCOUNTER → 2022-04-12 | Outpatient (CLI) | payer OTHER, MEDICARE ==
[~2022-04-12] MED LIST changes: -0.9% NACL 500ML IV.SOLN 500 ML IV SCH; +FURO20TA6 PO; +GABA300C PO; -IOHEXOL-350 75 ML VIAL IV ONE; -ISOS30TA11 PO; +LISI10TA24 PO; -LISI40TA9 PO; +METO25 PO; -METO25TA6 PO
[2022-04-12 12:49] LABS: ALBUMIN 4.5 g/dL (3.5-5.0); CREATININE 1.3 mg/dL (0.5-1.5); POTASSIUM 4.2 mmol/L (3.5-5.1); TOTAL PROTEIN, SERUM 8.3 g/dL (6.0-8.3)
== END | disposition home or self-care (01) ==
LOC: LAB 08:48
PROVIDERS: ATTEND Internal Medicine Cardiovascular Disease
DX: I10 Essential (primary) hypertension (principal); E78.5 Hyperlipidemia, unspecified
CPT/HCPCS: 36415; 80053; 80061

== ENCOUNTER → 2022-12-23 | Outpatient (CLI) | payer OTHER, MEDICARE ==
[2022-12-23 16:50] LABS: CREATININE 1.2 mg/dL (0.5-1.5); POTASSIUM 3.6 mmol/L (3.5-5.1)
== END | disposition home or self-care (01) ==
LOC: LAB 13:28
PROVIDERS: ATTEND Internal Medicine Cardiovascular Disease
DX: I25.810 Atherosclerosis of coronary artery bypass graft(s) without angina pectoris (principal)
CPT/HCPCS: 36415; 80048

== ENCOUNTER → 2023-08-19 | Outpatient (CLI) | payer OTHER, MEDICARE ==
[2023-08-19 12:44] LABS: ALBUMIN 3.7 g/dL (3.5-5.0); BILIRUBIN,TOTAL 0.5 mg/dL (0.2-1.0); CREATININE 1.2 mg/dL (0.5-1.3); POTASSIUM 3.8 mmol/L (3.5-5.1); TOTAL PROTEIN, SERUM 7.2 g/dL (6.0-8.3)
== END | disposition home or self-care (01) ==
LOC: LAB 08:54
PROVIDERS: ATTEND Internal Medicine Cardiovascular Disease
DX: E78.5 Hyperlipidemia, unspecified (principal)
CPT/HCPCS: 36415; 80053; 80061

== ENCOUNTER → 2023-09-09 | Outpatient (CLI) | payer OTHER, MEDICARE | END | disposition home or self-care (01) | LOC: RAH 08:14 | PROVIDERS: ATTEND Internal Medicine Cardiovascular Disease | DX: I25.10 Atherosclerotic heart disease of native coronary artery without angina pectoris (principal); R00.0 Tachycardia, unspecified | CPT/HCPCS: 78452; 96374; 93017; A9500 ×2 ==

== ENCOUNTER → 2023-11-18 | Outpatient (CLI) | payer OTHER, MEDICARE ==
[2023-11-18 12:25] LABS: CREATININE 1.3 mg/dL (0.5-1.3); POTASSIUM 3.8 mmol/L (3.5-5.1)
== END | disposition home or self-care (01) ==
LOC: LAB 09:05
PROVIDERS: ATTEND Internal Medicine Cardiovascular Disease
DX: I10 Essential (primary) hypertension (principal)
CPT/HCPCS: 36415; 80048

== ENCOUNTER → 2023-11-25 | Outpatient (CLI) | payer OTHER, MEDICARE ==
[~2023-11-25] MED LIST changes: +IOHEXOL-350 75 ML VIAL IV ONE
== END | disposition home or self-care (01) ==
LOC: RAH 09:23
PROVIDERS: ATTEND Internal Medicine Cardiovascular Disease
DX: I70.0 Atherosclerosis of aorta (principal); I10 Essential (primary) hypertension
CPT/HCPCS: 74174; Q9967

== ENCOUNTER 2023-12-19 12:10 | Emergency (ER) | payer OTHER, MEDICARE ==
[~2023-12-19] VITALS: Ht 165.1 cm; Wt 76.7 kg
[~2023-12-19 12:10] MED LIST changes: -IOHEXOL-350 75 ML VIAL IV ONE
[2023-12-19 12:43] LABS: BASOPHILS # (AUTO) 0.07 K/uL (0.00-0.20); BASOPHILS % (AUTO) 0.9 % (0.0-5.0); EOSINOPHILS # (AUTO) 0.19 K/uL (0.00-0.70); EOSINOPHILS % (AUTO) 2.5 % (0.0-8.0); HEMATOCRIT 43.9 % (42-54); IMMATURE GRANULOCYTE ABSOLUTE 0.02 K/uL (0-1); LYMPHOCYTES # (AUTO) 2.4 K/uL (1.0-4.8); LYMPHOCYTES % (AUTO) 32.2 % (21.0-51.0); MEAN CORPUSCULAR HEMOGLOBIN 32.1 pg (27.0-33.0); MEAN CORPUSCULAR HGB CONC 36.2 g/dL (32.0-36.0); MEAN CORPUSCULAR VOLUME 88.5 fL (79-99); MONOCYTES # (AUTO) 0.7 K/uL (0.1-1.0); MONOCYTES % (AUTO) 9.5 % (3.0-13.0); NEUTROPHILS # (AUTO) 4.1 K/uL (1.8-7.7); NEUTROPHILS % (AUTO) 54.6 % (40.0-77.0); PLATELET COUNT (AUTO) 211 K/uL (130-400); RED BLOOD CELL COUNT(AUTO) 4.96 MIL/uL (4.50-6.20); RED CELL DISTRIBUTION WIDTH 12.4 % (11.0-15.5); WHITE BLOOD COUNT (AUTO) 7.5 K/uL (4.8-10.8)
[2023-12-19 12:52] LABS: CREATININE 1.3 mg/dL (0.5-1.3)
[2023-12-19 12:57] LABS: BILIRUBIN,TOTAL 0.8 mg/dL (0.2-1.0); MAGNESIUM 1.9 mg/dL (1.80-2.40); TOTAL PROTEIN, SERUM 7.7 g/dL (6.0-8.3)
[2023-12-19 16:10] LABS: SARS-CoV-2, RNA, NAAT NEGATIVE SARS CoV-2 (NEGATIVE)
[2023-12-19 16:17] LABS: INFLUENZA TYPE A Negative For Type A (NEGATIVE); INFLUENZA TYPE B Negative For Type B (NEGATIVE)
[2023-12-19 17:29] VITALS: BP 154/81; PULSE 45; RESP 13
[2023-12-19] MEDS: ASPIRIN 325MG TAB PO ONE (17:37)
[2023-12-19] MEDS: ASPIRIN 325MG TAB ONE (17:39)
== END 2023-12-19 17:53 | disposition home or self-care (01) ==
LOC: EDH 12:10
DX: I20.89 Other forms of angina pectoris (principal); I10 Essential (primary) hypertension; E78.00 Pure hypercholesterolemia, unspecified; Z20.822 Contact with and (suspected) exposure to COVID-19; Z79.82 Long term (current) use of aspirin; Z79.899 Other long term (current) drug therapy; Z95.1 Presence of aortocoronary bypass graft; Z98.890 Other specified postprocedural states
CPT/HCPCS: 36415; 71045; 80053; 83735; 83880; 84484; 85025; 85730; 87635; 87804; 93005

== ENCOUNTER → 2024-05-13 | Outpatient (CLI) | payer OTHER, MEDICARE ==
[~2024-05-13] MED LIST changes: +IOHEXOL-350 50ML VIAL IV ONE
--- NOTE | 2024-05-13 11:24 | HMCIMG ---
CT HEAD/BRAIN W/WO CONTRAST HISTORY: Headaches COMPARISON: None TECHNIQUE: Multiple sequential axial images of the head were obtained from the base of the skull through vertex. Patient was given 50 cc of through intravenous route. FINDINGS: The ventricles and extraventricular CSF spaces are dilated consistent with cerebral atrophy. Nonspecific white matter changes seen. No abnormal There is no midline shift, mass effect or herniation. No acute intracranial bleed is seen. Visualized portion of the paranasal sinuses are grossly within normal limits. IMPRESSION: 1. No acute intracranial bleed is seen. 2. Atrophy with white matter changes. No abnormal enhancement is seen. CT was performed with one or more following dose reduction techniques: automated exposure control, adjustment of the mA and kv according to patient's size, or use of a iterative reconstruction technique.
== END | disposition home or self-care (01) ==
LOC: RAH 09:42
PROVIDERS: ATTEND Family Medicine
DX: G31.9 Degenerative disease of nervous system, unspecified (principal); R51.9 Headache, unspecified; R90.82 White matter disease, unspecified
CPT/HCPCS: 70470; Q9967

== ENCOUNTER → 2024-06-21 | Outpatient (CLI) | payer OTHER, MEDICARE ==
[~2024-06-21] MED LIST changes: -IOHEXOL-350 50ML VIAL IV ONE
[2024-06-21 12:33] LABS: CREATININE 1.3 mg/dL (0.5-1.3); MAGNESIUM 1.8 mg/dL (1.80-2.40); POTASSIUM 3.9 mmol/L (3.5-5.1)
== END | disposition home or self-care (01) ==
LOC: LAB 08:42
PROVIDERS: ATTEND Internal Medicine Cardiovascular Disease
DX: I10 Essential (primary) hypertension (principal); E78.5 Hyperlipidemia, unspecified; M79.10 Myalgia, unspecified site; Z79.899 Other long term (current) drug therapy
CPT/HCPCS: 36415; 80048; 82306; 83735

== ENCOUNTER 2024-07-06 12:44 | Emergency (ER) | payer OTHER, MEDICARE ==
[~2024-07-06] VITALS: Ht 165.1 cm; Wt 76.2 kg
--- NOTE | 2024-07-06 13:27 | EKG ---
[facility] Test Date: 2024-07-06 Test Time: 13:23:59 Pat Name: PO SARABIA Department: ED Room: Gender: M Enrollment Consultant: [id number] : 1950 Requested By: KAROLYN SIMS Order Number: [id number] Reading MD: Nieves Rios Measurements Intervals Willet Rate: 66 P: 21 AR: 224 QRS: 33 QRSD: 93 T: 79 QT: 383 QTc: 378 Interpretive Statements Sinus rhythm Ventricular premature complex Prolonged AR interval Compared to ECG 12/19/2023 12:15:41 Ventricular premature complex(es) now present Electronically Signed On 07-07-2024 17:05:29 [employer] APPRENTICE by Nieves Rios Please click the below link to view image of tracing.
[2024-07-06] MEDS: LACTATED RINGERS 1000ML 1,000 ML IV ONE (14:32)
[2024-07-06] MEDS ORDERED: IOHEXOL-350 75 ML VIAL IV ONE (14:44)
[2024-07-06 14:48] LABS: BASOPHILS # (AUTO) 0.07 K/uL (0.00-0.20); BASOPHILS % (AUTO) 0.9 % (0.0-5.0); EOSINOPHILS # (AUTO) 0.18 K/uL (0.00-0.70); EOSINOPHILS % (AUTO) 2.3 % (0.0-8.0); HEMATOCRIT 46.3 % (42-54); IMMATURE GRANULOCYTE ABSOLUTE 0.03 K/uL (0-1); LYMPHOCYTES # (AUTO) 2.6 K/uL (1.0-4.8); LYMPHOCYTES % (AUTO) 33.6 % (21.0-51.0); MEAN CORPUSCULAR HEMOGLOBIN 31.8 pg (27.0-33.0); MEAN CORPUSCULAR HGB CONC 35.9 g/dL (32.0-36.0); MEAN CORPUSCULAR VOLUME 88.7 fL (79-99); MONOCYTES # (AUTO) 0.7 K/uL (0.1-1.0); MONOCYTES % (AUTO) 9.1 % (3.0-13.0); NEUTROPHILS # (AUTO) 4.2 K/uL (1.8-7.7); NEUTROPHILS % (AUTO) 53.7 % (40.0-77.0); PLATELET COUNT (AUTO) 252 K/uL (130-400); RED BLOOD CELL COUNT(AUTO) 5.22 MIL/uL (4.50-6.20); RED CELL DISTRIBUTION WIDTH 11.9 % (11.0-15.5); WHITE BLOOD COUNT (AUTO) 7.8 K/uL (4.8-10.8)
[2024-07-06 14:54] LABS: APPEARANCE,URINE CLEAR (CLEAR); BILIRUBIN,URINE NEGATIVE (NEGATIVE); COLOR,URINE LIGHT-YELLOW (YELLOW); GLUCOSE, URINE (UA) NEGATIVE (NEGATIVE); KETONES,URINE NEGATIVE (NEGATIVE); LEUKOCYTE ESTERASE ,URINE NEGATIVE Leu/uL (NEGATIVE); NITRATE,URINE NEGATIVE (NEGATIVE); OCCULT BLOOD,URINE NEGATIVE (NEGATIVE); PH,URINE 5.5 (5.0-8.0); PROTEIN,URINE NEGATIVE (NEGATIVE); UROBILINOGEN,URINE 0.2 mg/dL (0.2-1.0)
[2024-07-06 15:05] LABS: ADD UA MICROSCOPIC NO
[2024-07-06 15:10] LABS: CREATININE 1.1 mg/dL (0.5-1.3)
[2024-07-06 15:15] LABS: ALBUMIN 4.2 g/dL (3.5-5.0); BILIRUBIN,DIRECT 0.1 mg/dL (0.0-0.3); BILIRUBIN,TOTAL 0.8 mg/dL (0.2-1.0); TOTAL PROTEIN, SERUM 7.9 g/dL (6.0-8.3)
--- NOTE | 2024-07-06 15:36 | HMCIMG ---
CT ABDOMEN/PELVIS W/CONTRAST HISTORY: Pain COMPARISON: 11/25/2023 TECHNIQUE: Multiple sequential axial images of the abdomen and pelvis were obtained from the dome of the diaphragm through symphysis pubis. Patient was given 75 cc of Omnipaque through intravenous route. Oral contrast was not given. FINDINGS: No pleural effusion is seen bilaterally. There is no evidence of parenchymal disease or pulmonary nodule of the visualized lower lungs. Degenerative changes of the thoracolumbar spine are present. The heart is not enlarged. Liver measures 16 cm. The liver, spleen, adrenal glands and pancreas are unremarkable. There is no evidence of hydronephrosis bilaterally. No evidence of renal stone is seen. Fecal material is seen in the colon. There is diverticulosis. There are normal size retroperitoneal and mesenteric lymph nodes. No ascites is seen. Atherosclerotic changes are present. There is left hip prosthesis causing artifacts limiting evaluation. Pelvic sidewalls are symmetric bilaterally. Bladder is well distended without wall thickening. IMPRESSION: 1. Diverticulosis. No ascites. CT was performed with one or more following dose reduction techniques: automated exposure control, adjustment of the mA and kv according to patient's size, or use of a iterative reconstruction technique.
[2024-07-06 15:51] VITALS: TEMP 98
--- NOTE | 2024-07-06 16:26 | ERN ---
General Chief Complaint: Abdominal Pain Stated Complaint: ABDOMINAL PAIN,MULTIPLE COMPLAINTS History of Present Illness Initial Comments 74-year-old male who presents for abdominal pain. Patient reports he has had lower abdominal pain for the last three weeks, he was also complaining of prob lems with his urinary stream. He went to the PCP and they did an ultrasound which showed no abnormalities. he reports pain to the lower abdomen and rectal area. Allergies: Coded Allergies: No Known Drug Allergies (Unverified Allergy, Unknown, 01/01/21) Home Meds Active Scripts Furosemide (Lasix 20Mg Tab) 20 Mg Tablet, 20 MG PO BID@09,17 for 15 Days, #30 TAB Prov:FIDELIA GARRIDO Jr., MD 03/20/21 Metoprolol Tartrate (Lopressor) 25 Mg Tab, 37.5 MG PO BID for 30 Days, #90 TAB Take 1 and 1/2 tablets orally twice daily Prov:FIDELIA GARRIDO Jr., MD 03/20/21 Gabapentin (Neurontin) 300 Mg Capsule, 300 MG PO TID for 10 Days, #30 CAP Prov:FIDELIA GARRIDO Jr., MD 03/20/21 Lisinopril (Lisinopril) 10 Mg Tablet, 10 MG PO DAILY for 30 Days, #30 TAB Prov:FIDELIA GARRIDO Jr., MD 03/20/21 Reported Medications Aspirin (ASPIRIN 81 MG ECTAB) 81 Mg Ectab, 81 MG PO DAILY, TAB.EC 03/12/21 Levothyroxine Sodium (Levothyroxine) 50 Mcg Capsule, 50 MCG PO DAILY, CAP 03/12/21 Omeprazole (Omeprazole) 40 Mg Capsule.dr, 40 MG PO DAILY, CAP 03/12/21 Atorvastatin Calcium (Atorvastatin Calcium) 40 Mg Tablet, 40 MG PO HS, TAB 03/12/21 Past Medical History Past Medical History: High Cholesterol, Hypertension Past Surgical History: Appendectomy, CABG, Other Surgical History Other: HIP, RECTAL FISTULA, STENTS Social History Social History: Negative, Lives with family ROS Dictation CONSTITUTIONAL: No chills, no fever, no weakness, no diaphoresis, no malaise. HEAD/FACE: No signs of trauma. EENT: No eye pain, no blurred vision, no tearing, no double vision, no ear pain, no ear discharge, no nose pain, no nasal congestion, no throat pain, no throat swelling, no mouth pain. RESPIRATORY: No cough, no orthopnea, no SOB, no stridor, no wheezing. CARDIOVASCULAR: No chest pain, no edema, no palpitations, no syncope. GASTROINTESTINAL/ABDOMINAL: No abdominal pain, no constipation, no diarrhea, no nausea, no vomiting. GENITOURINARY: No abnormal discharge, no dysuria, no frequent urination, no hematuria. No complaints of pain in the genitals. MUSCULOSKELETAL: No back pain, no gout, no joint pain, no joint swelling, no muscle pain, no muscle stiffness, no neck pain. INTEGUMENTARY: No change in color, no change in hair/nails, no dryness, no lesion, no lumps, no rash. NEUROLOGICAL/PSYCH: No anxiety, not depressed, no emotional problem, no headache, no numbness, no pre-existing deficit, no history of seizures, no tremors, no weakness. HEMATOLOGIC/LYMPHATIC: Not anemic, no history of blood clots, no apparent bleeding, no bruising, glands not swollen. All Systems Negative, Except as Noted. Physical Exam Physical Exam Dictation VITAL SIGNS: Reviewed. GENERAL APPEARANCE: Alert, oriented x3, no acute distress EYES: PERRL, pink conjunctivas, eyelid no trauma, anterior chamber clear. EARS: Pinnas intact and no signs of trauma or erythema. Ear canals clear and no discharge. TMs no erythema. NOSE: No discharge, no bleeding. OROPHARYNX: Mouth normal, teeth no caries, tongue pink. Pharynx clear, no erythema. Tonsils no exudates, no abscesses noted. Mucous membrane moist. NECK: Supple, non-tender, no thyromegaly, no masses, no JVD, no bruits. BREAST: Deferred. CHEST: No tenderness, no crepitus, no paradoxical movement, no retractions. LUNGS: Clear, well-ventilated, symmetric, no rales, no wheezing, no rhonchi, no stridor, good breath sounds bilaterally. HEART: Regular rate, regular rhythm, no murmur, no gallops. VASCULAR: No peripheral edema. ABDOMEN: Soft, positive bowel sounds, nondistended, no guarding, nontender, no rebound, no masses no hepatomegaly, no splenomegaly, no Bauman's sign, no hernias. RECTAL: Deferred. GENITAL: Deferred. NEUROLOGICAL: Normal speech, gross motor function intact, gross sensory function intact. MUSCULOSKELETAL: Neck nontender, full range of motion, back nontender, full range of motion. EXTREMITIES: Nontender, full range of motion. SKIN: Color pink, dry, no turgor, no rash, no lacerations, no abrasions, no contusions. LYMPHATICS: Deferred. Results Laboratory and Microbiology Lab and Micro Result Laboratory Tests Test 07/06/24 13:22 07/06/24 14:13 White Blood Count 7.8 K/uL (4.8-10.8) Red Blood Count 5.22 MIL/uL (4.50-6.20) Hemoglobin 16.6 g/dL (14.0-18.0) Hematocrit 46.3 % (42-54) Mean Corpuscular Volume 88.7 fL (79-99) Mean Corpuscular Hemoglobin 31.8 pg (27.0-33.0) Mean Corpuscular Hemoglobin Concent 35.9 g/dL (32.0-36.0) Red Cell Distribution Width 11.9 % (11.0-15.5) Platelet Count 252 K/uL (130-400) Mean Platelet Volume 9.6 fL (7.5-10.5) Immature Granulocyte % (Auto) 0.4 % (0-1) Neutrophils (%) (Auto) 53.7 % (40.0-77.0) Lymphocytes (%) (Auto) 33.6 % (21.0-51.0) Monocytes (%) (Auto) 9.1 % (3.0-13.0) Eosinophils (%) (Auto) 2.3 % (0.0-8.0) Basophils (%) (Auto) 0.9 % (0.0-5.0) Neutrophils # (Auto) 4.2 K/uL (1.8-7.7) Lymphocytes # (Auto) 2.6 K/uL (1.0-4.8) Monocytes # (Auto) 0.7 K/uL (0.1-1.0) Eosinophils # (Auto) 0.18 K/uL (0.00-0.70) Basophils # (Auto) 0.07 K/uL (0.00-0.20) Absolute Immature Granulocyte (auto 0.03 K/uL (0-1) Nucleated Red Blood Cells 0.0 % (0.0-0.19) Sodium Level 137 mmol/L (136-145) Potassium Level 4.0 mmol/L (3.5-5.1) Chloride Level 100 mmol/L (101-111) L Carbon Dioxide Level 32 mmol/L (21-32) Blood Urea Nitrogen 17 mg/dL (7-18) Creatinine 1.1 mg/dL (0.5-1.3) Glomerular Filtration Rate Calc 71 mL/min (>90) Random Glucose 99 mg/dL (70-105) Total Calcium 10.2 mg/dL (8.5-10.1) H Total Bilirubin 0.8 mg/dL (0.2-1.0) Direct Bilirubin 0.1 mg/dL (0.0-0.3) Aspartate Amino Transf (AST/SGOT) 18 U/L (10-37) Alanine Aminotransferase (ALT/SGPT) 27 U/L (12-78) Alkaline Phosphatase 85 U/L (50-136) Total Creatine Kinase 59 U/L (21-232) C-Reactive Protein, Quantitative 3.80 mg/L (0.5-3.0) H Total Protein 7.9 g/dL (6.0-8.3) Albumin 4.2 g/dL (3.5-5.0) Lipase 41 U/L (16-77) Urine Color LIGHT-YELLOW (YELLOW) Urine Appearance CLEAR (CLEAR) Urine pH 5.5 (5.0-8.0) Urine Specific [place] 1.013 (1.001-1.031) Urine Protein NEGATIVE mg/dL (NEGATIVE) Urine Glucose (UA) NEGATIVE mg/dL (NEGATIVE) Urine Ketones NEGATIVE mg/dL (NEGATIVE) Urine Occult Blood NEGATIVE (NEGATIVE) Urine Nitrate NEGATIVE (NEGATIVE) Urine Bilirubin NEGATIVE mg/dL (NEGATIVE) Urine Urobilinogen 0.2 mg/dL (0.2-1.0) Urine Leukocyte Esterase NEGATIVE Elliott/uL MDM CC: Lower abdominal pain, hesitancy Limitations by social determinants of: None Historian: Patient Comorbidities: appendectomy, CABG, rectal fistula, stents Vital signs: Stable. Hypertensive 169/84 otherwise unremarkable. Differential diagnosis: BPH, UTI, other. Labs (independently ordered and interpreted by me ): No leukocytosis or anemia. Chemistry panel unremarkable. Liver functions unremarkable. CRP is normal. Lipase normal. Urinalysis normal. CT of the abdomen and pelvis with contrast ( independently interpreted by me ): No acute abnormalities. Treatment in ER: Patient received 1 L lactated Ringer's in the ER No dangerous findings on the workup here today. I suspect he may have mild enlargement of the prostate. I have very low suspicion for prostatitis, urinary tract infection, sepsis, pyelonephritis, or any other life-threatening pathology. No signs of Lakeshia's gangrene clinical exam. We will recommend that he continues with the Flomax and follows up as an outpatient with the PCP. ED Course Orders Procedure Category Date Status Time Cbc With Differential LAB 07/06/24 Complete 13:07 Urinalysis Profile LAB 07/06/24 Complete 13:07 Ct Abdomen/Pelvis CT 07/06/24 Resulted W/Contrast 13:07 12 Lead Ekg Tracing- EKG 07/06/24 Complete Technical 13:07 Lactated Ringers PHA 07/06/24 Complete 1000ml (Lactated 13:30 Creatine Kinase, Total LAB 07/06/24 Complete 13:07 Lipase LAB 07/06/24 Complete 13:07 Basic Metabolic Panel LAB 07/06/24 Complete 13:07 Hepatic Function Panel LAB 07/06/24 Complete 13:07 Crp Quantitative LAB 07/06/24 Complete 13:07 Iohexol (Omnipaque) PHA 07/06/24 Complete 14:44 Current Medications Medications (Trade) Dose Ordered Sig/Ozzie Route PRN Reason Start Time Stop Time Status Last Admin Dose Admin Iohexol (Omnipaque) 75 ml STK-MED ONCE IV 07/06/24 14:44 07/06/24 14:44 DC Lactated Ringer's 1,000 ml @ 0 mls/hr ONCE ONCE IV 07/06/24 13:30 07/06/24 13:31 DC 07/06/24 14:32 Vital Signs Date Time Temp Pulse Resp B/P (MAP) Pulse Ox O2 Delivery O2 Flow Rate FiO2 07/06/24 15:51 98.1 54 17 162/83 98 Room Air* 0 21 07/06/24 13:00 98.2 57 20 169/84 99 Room Air 0 DX & DISP Disposition: Discharge Departure Impression: Primary Impression: Lower abdominal pain Additional Impression: Prostatic hypertrophy Condition: Stable Scripts Tamsulosin HCl (Flomax) 0.4 Mg Cap.er.24h 0.4 MG PO DAILY for 30 Days, #30 CAPSULE. Prov: KAROLYN SIMS DO 07/06/24 Meloxicam (Meloxicam) 15 Mg Tablet 15 MG PO DAILY PRN for PAIN for 10 Days, #10 TAB Prov: KAROLYN SIMS DO 07/06/24 Additional Instructions: There are no dangerous findings on your workup here today. Your blood work (CBC, BNP, liver function tests, CK, troponin, lipase, urinalysis) is unremarkable. The CT scan of your abdomen and pelvis shows a mildly enlarged prostate, but o therwise no acute abnormalities. I have prescribed tamsulosin, which helps with the enlarged prostate. I recommend that you take this daily. I have prescribed meloxicam, which is an anti-inflammatory pain medicine. You can take this once a day as needed for discomfort. I recommend you continue taking all of your previous prescribed medications. For pain you can take [id number] Tylenol (1000 mg) or ibuprofen (800 mg). Please follow up with your primary doctor. Referrals: HARISH AGUSTIN M.D. (PCP) KAROLYN SIMS DO Jul 06, 2024 16:26
[2024-07-06] MEDS ORDERED: TAMS-1 PO (16:46)
[2024-07-06] MEDS ORDERED: MELO-108 PO (16:46)
[2024-07-06 16:47] VITALS: BP 178/93; PULSE 63; RESP 17; O2SAT 99
== END 2024-07-06 17:00 | disposition home or self-care (01) ==
LOC: EDH 12:44
DX: R10.30 Lower abdominal pain, unspecified (principal); N40.0 Benign prostatic hyperplasia without lower urinary tract symptoms; E78.00 Pure hypercholesterolemia, unspecified; I10 Essential (primary) hypertension; Z79.82 Long term (current) use of aspirin; Z79.890 Hormone replacement therapy; Z79.899 Other long term (current) drug therapy; Z90.49 Acquired absence of other specified parts of digestive tract; Z95.1 Presence of aortocoronary bypass graft
CPT/HCPCS: 99285; 74177; 96360; 96361; 82550; 80076; 80048; 83690; 85025; 86140; 81003; 36415; 93005; J7120; Q9967

== ENCOUNTER 2024-09-03 18:53 | Emergency (ER) | payer OTHER, MEDICARE ==
[~2024-09-03] VITALS: Ht 165.1 cm; Wt 59.4 kg
[~2024-09-03 18:53] MED LIST changes: -LEVO50CA4 PO; +LEVO50CA5 PO; +MELO-108 PO; +TAMS-55 PO
[2024-09-03 19:02] VITALS: TEMP 98.4
--- NOTE | 2024-09-03 19:18 | ERN ---
ED Note History of Present Illness Stated Complaint: CP, FEVER, CHILLS Time Seen by MD: 19:02 Dictation: PATIENT IS A 74-YEAR-OLD MALE COMING IN TODAY WITH COMPLAINTS OF HIS HEART SKIPPING A BEAT EVERY NOW AND THEN SINCE YESTERDAY WITH SHORTNESS A BREATH. HE ALSO STATES HE HAS BEEN HAVING FEVER CHILLS NO NAUSEA VOMITING NO LOSS OF TASTE OR SMELL. STATES HE HISTORY OF CAD, CABG X4 PATIENT OF DR. BURRIS. HE DID NOT GO SEE HIS PRIMARY CARE DOCTOR TODAY. Allergies: Coded Allergies: No Known Drug Allergies (Unverified Allergy, Unknown, 01/01/21) Home Meds Active Scripts Tamsulosin HCl (Flomax) 0.4 Mg Cap.er.24h, 0.4 MG PO DAILY for 30 Days, #30 CAPSULE. Prov:KAROLYN SIMS DO 07/06/24 Meloxicam (Meloxicam) 15 Mg Tablet, 15 MG PO DAILY PRN for PAIN for 10 Days, #10 TAB Prov:KAROLYN SIMS DO 07/06/24 Furosemide (Lasix 20Mg Tab) 20 Mg Tablet, 20 MG PO BID@09,17 for 15 Days, #30 TAB Prov:FIDELIA GARRIDO Jr., MD 03/20/21 Metoprolol Tartrate (Lopressor) 25 Mg Tab, 37.5 MG PO BID for 30 Days, #90 TAB Take 1 and 1/2 tablets orally twice daily Prov:FIDELIA GARRIDO Jr., MD 03/20/21 Gabapentin (Neurontin) 300 Mg Capsule, 300 MG PO TID for 10 Days, #30 CAP Prov:FIDELIA GARRIDO Jr., MD 03/20/21 Lisinopril (Lisinopril) 10 Mg Tablet, 10 MG PO DAILY for 30 Days, #30 TAB Prov:FIDELIA GARRIDO Jr., MD 03/20/21 Reported Medications Aspirin (ASPIRIN 81 MG ECTAB) 81 Mg Ectab, 81 MG PO DAILY, TAB.EC 03/12/21 Levothyroxine Sodium (Levothyroxine) 50 Mcg Capsule, 50 MCG PO DAILY, CAP 03/12/21 Omeprazole (Omeprazole) 40 Mg Capsule.dr, 40 MG PO DAILY, CAP 03/12/21 Atorvastatin Calcium (Atorvastatin Calcium) 40 Mg Tablet, 40 MG PO HS, TAB 03/12/21 Past Medical History Past Medical History: High Cholesterol, Hypertension Surgical History: Appendectomy, CABG, Other Surgical History Other: HIP, RECTAL FISTULA, STENTS Social History: Negative, Lives with family RN Note Reviewed/Agreed w/PFSH: Yes Review of System Dictation CONSTITUTIONAL: NEGATIVE EXCEPT FOR HPI FEVER CHILLS HEAD/FACE: NEGATIVE EXCEPT FOR HPI EENT: NEGATIVE EXCEPT FOR HPI RESPIRATORY: NEGATIVE EXCEPT FOR HPI IRREGULAR HEARTBEAT GASTROINTESTINAL/ABDOMINAL: NEGATIVE EXCEPT FOR HPI GENITOURINARY: NEGATIVE EXCEPT FOR HPI MUSCULOSKELETAL: NEGATIVE EXCEPT FOR HPI INTEGUMENTARY: NEGATIVE EXCEPT FOR HPI NEUROLOGICAL/PSYCH: NEGATIVE EXCEPT FOR HPI HEMATOLOGIC/LYMPHATIC: NEGATIVE EXCEPT FOR HPI ALL SYSTEMS NEGATIVE, EXCEPT NOTED ABOVE. 13 POINT REVIEW OF SYSTEMS ASSESSED AND ALL NEGATIVE EXCEPT FOR ABOVE. Initial Vital Sign VS Vital Signs Date Time Temp Pulse Resp B/P (MAP) Pulse Ox O2 Delivery O2 Flow Rate FiO2 09/03/24 19:02 98.4 76 20 146/83 97 Room Air 09/03/24 20:02 0 21 Physical Exam Dictation VITAL SIGNS REVIEWED GENERAL APPEARANCE: ALERT, ORIENTED X 3, NO ACUTE DISTRESS, WELL DEVELOPED, NOURISHED. HEAD AND FACE: NON-TRAUMATIC. EYES: PERRL, PINK CONJUNCTIVAS, EYELID NO TRAUMA, ANTERIOR CHAMBER WITH ARCUS SENILIS. EARS: PINNAS INTACT AND NO SIGNS OF TRAUMA OR ERYTHEMA EAR CANALS CLEAR AND NO D ISCHARGE TM NO ERYTHEMA NOSE: NO DISCHARGE, NO BLEEDING. OROPHARYNX: MOUTH NORMAL, TONGUE PINK, PHARYNX CLEAR,NO ERYTHEMA, TONSILS NO EXUDATES, NO ABSCESSES NOTED, MUCOUS MEMBRANE MOIST NECK: SUPPLE, NON-TENDER, NO THYROMEGALY, NO MASSES, NO JVD, NO BRUITS BREAST:DEFERRED CHEST:NO TENDERNESS, NO CREPITUS, NO PARADOXICAL MOVEMENT, NO RETRACTIONS LUNGS:CLEAR, WELL-VENTILATED, SYMMETRIC, NO RALES, NO WHEEZING, NO RHONCHI, NO STRIDOR, GOOD BREATH SOUNDS BILATERALLY HEART: REGULAR RATE, REGULAR RHYTHM, NO MURMUR, NO GALLOPS VASCULAR: NO PERIPHERAL EDEMA, ABDOMEN: SOFT, POSITIVE BOWEL SOUNDS, NONDISTENDED, NO GUARDING, NONTENDER, NO REBOUND, NO MASSES NO HEPATOMEGALY, NO SPLENOMEGALY, NO SNOW'S SIGN, NO HERNIAS. RECTAL: DEFERRED GENITAL: DEFERRED NEUROLOGICAL: NORMAL SPEECH, MOTOR FUNCTION INTACT, SENSORY FUNCTION INTACT MUSCULOSKELETAL: NECK NONTENDER, FULL RANGE OF MOTION, BACK NONTENDER, FULL RANGE OF MOTION, EXTREMITIES: NONTENDER, FULL RANGE OF MOTION SKIN: COLOR PINK, DRY, NO TURGOR, NO RASH, NO LACERATIONS, NO ABRASIONS, NO CONTUSIONS. LYMPHATIC: DEFERRED Results (Laboratory/Radiology) Laboratory/Radiology Laboratory Tests Test 09/03/24 19:43 09/03/24 20:21 White Blood Count 5.6 K/uL (4.8-10.8) Red Blood Count 4.84 MIL/uL (4.50-6.20) Hemoglobin 15.5 g/dL (14.0-18.0) Hematocrit 43.4 % (42-54) Mean Corpuscular Volume 89.7 fL (79-99) Mean Corpuscular Hemoglobin 32.0 pg (27.0-33.0) Mean Corpuscular Hemoglobin Concent 35.7 g/dL (32.0-36.0) Red Cell Distribution Width 13.1 % (11.0-15.5) Platelet Count 147 K/uL (130-400) Mean Platelet Volume 9.1 fL (7.5-10.5) Immature Granulocyte % (Auto) 0.4 % (0-1) Neutrophils (%) (Auto) 69.0 % (40.0-77.0) Lymphocytes (%) (Auto) 18.1 % (21.0-51.0) L Monocytes (%) (Auto) 9.0 % (3.0-13.0) Eosinophils (%) (Auto) 3.0 % (0.0-8.0) Basophils (%) (Auto) 0.5 % (0.0-5.0) Neutrophils # (Auto) 3.9 K/uL (1.8-7.7) Lymphocytes # (Auto) 1.0 K/uL (1.0-4.8) Monocytes # (Auto) 0.5 K/uL (0.1-1.0) Eosinophils # (Auto) 0.17 K/uL (0.00-0.70) Basophils # (Auto) 0.03 K/uL (0.00-0.20) Absolute Immature Granulocyte (auto 0.02 K/uL (0-1) Nucleated Red Blood Cells 0.0 % (0.0-0.19) Sodium Level 135 mmol/L (136-145) L Potassium Level 3.4 mmol/L (3.5-5.1) L Chloride Level 100 mmol/L (101-111) L Carbon Dioxide Level 26 mmol/L (21-32) Blood Urea Nitrogen 17 mg/dL (7-18) Creatinine 1.4 mg/dL (0.5-1.3) H Glomerular Filtration Rate Calc 53 mL/min (>90) Random Glucose 122 mg/dL (70-105) H Lactic Acid Level 1.9 mmol/L (0.8-2.5) Total Calcium 8.8 mg/dL (8.5-10.1) Total Creatine Kinase 52 U/L (21-232) Troponin I High Sensitivity 10 ng/L (4-75) B-Type Natriuretic Peptide 34 pg/mL (0-100) Urine Color YELLOW (YELLOW) Urine Appearance CLEAR (CLEAR) Urine pH 6.0 (5.0-8.0) Urine Specific [place] 1.038 (1.001-1.031) Urine Protein 70 mg/dL (NEGATIVE) H Urine Glucose (UA) NEGATIVE mg/dL (NEGATIVE) Urine Ketones NEGATIVE mg/dL (NEGATIVE) Urine Occult Blood NEGATIVE (NEGATIVE) Urine Nitrate NEGATIVE (NEGATIVE) Urine Bilirubin NEGATIVE mg/dL (NEGATIVE) Urine Urobilinogen 0.2 mg/dL (0.2-1.0) Urine Leukocyte Esterase NEGATIVE Elliott/uL Urine RBC 0-1 /HPF (0-1) Urine WBC 0-1 /HPF (0-1) Urine Squamous Epithelial Cells RARE /HPF (0-2) Urine Bacteria RARE /HPF (None Seen) Urine Yeast RARE /HPF (None Seen) COMPARISON: 12/19/2023 FINDINGS: A frontal projection of the chest was obtained. Mild bilateral pulmonary infiltrates are seen may be related to mild pulmonary vascular congestion with possible superimposed pneumonitis. Poststernotomy changes are seen. The heart is enlarged. Degenerative changes of the thoracolumbar spine are present. Postoperative changes are seen of the cervical spine. No evidence of aortic calcification is seen. IMPRESSION: 1. Mild bilateral pulmonary infiltrates are seen may be related to mild pulmonary vascular congestion with possible superimposed pneumonitis. Labs Reviewed?: Yes EKG Comment: EKG SINUS RHYTHM/HEART RATE 82/NONSPECIFIC T-WAVE CHANGE V5 AND SIX ED Course ED Course Orders Procedure Category Date Status Time Vital Signs Per CPOE 09/03/24 Transmitted Routine 19:15 B-Type Natriuretic LAB 09/03/24 Complete Peptide 19:15 Chest 1vw RAD 09/03/24 Resulted 19:15 12 Lead Ekg Tracing- EKG 09/03/24 Complete Technical 19:15 Oxygen By Nc/Pulse Ox CPOE 09/03/24 Transmitted 19:15 Maintain Iv CPOE 09/03/24 Transmitted 19:15 Iv Insertion CPOE 09/03/24 Transmitted 19:15 Cardiac Monitoring CPOE 09/03/24 Transmitted 19:15 Pulse Oximetry With CPOE 09/03/24 Transmitted Vs And Prn 19:15 Cbc With Differential LAB 09/03/24 Complete 19:15 Activity: Br W/Brp CPOE 09/03/24 Transmitted With Assist 19:15 Creatine Kinase, Total LAB 09/03/24 Complete 19:15 Troponin I High LAB 09/03/24 Complete Sensitivity 19:15 Urinalysis Profile LAB 09/03/24 Complete 19:15 Basic Metabolic Panel LAB 09/03/24 Complete 19:15 Blood Cult NATALIE 09/03/24 In Process 19:50 Lactic Acid LAB 09/03/24 Complete 19:50 Ceftriaxone 1g Vial PHA 09/03/24 Complete (Rocephine 1g Inj) 21:00 Azithromycin 500mg+Ns PHA 09/03/24 Complete 250ml (Azithromyci 20:51 Potassium Bicarb/Cit PHA 09/03/24 Complete Ac 25meq (K-Lyte Ta 21:00 Albuterol 0.083% PHA 09/03/24 Complete 2.5mg/3ml (Proventil 21:00 Current Medications Medications (Trade) Dose Ordered Sig/Ozzie Route PRN Reason Start Time Stop Time Status Last Admin Dose Admin Albuterol Sulfate (Proventil 0.083% 2.5mg/3ml) 2.5 mg ONCE ONCE IH 09/03/24 21:00 09/03/24 21:01 DC 09/03/24 21:26 Azithromycin 250 ml @ 250 mls/hr ONCE STAT IVPB 09/03/24 20:51 09/03/24 21:50 DC 09/03/24 21:55 Ceftriaxone Sodium (ROCEphine 1G INJ) 1 gm ONCE ONCE IM 09/03/24 21:00 09/03/24 21:01 DC 09/03/24 21:24 Potassium Bicarbonate (K-Lyte Tablet Eff 25 Meq Tablet.eff) 25 meq ONCE ONCE PO 09/03/24 21:00 09/03/24 21:01 DC 09/03/24 21:23 Vital Signs Date Time Temp Pulse Resp B/P (MAP) Pulse Ox O2 Delivery O2 Flow Rate FiO2 09/03/24 21:37 77 18 149/72 96 Room Air* 0 21 09/03/24 21:26 79 18 09/03/24 20:02 78 18 129/71 96 Room Air* 0 21 09/03/24 19:02 98.4 76 20 146/83 97 Room Air 2130/spoke with patient and at length regarding lab findings EKG and chest x-ray. Patient is adamant he does not want to be admitted to the hospital and would like to go home and be treated outpatient for his pneumonia with oral antibiotics and respiratory treatments at home. He agreed to be got worse to come back to the hospital otherwise he will see his doctor on Friday. 's at bedside and she agreed with his decision. HEART Score Response (Comments) Value EKG: Repolarization changes 1 Age: > 65yrs (+2) 2 Risk Factors: 3+ risk factors (+2) 2 Initial Troponin: Normal limit (0) 0 Total 5 Medical Decision Making MDM MDM: DIFFERENTIAL DIAGNOSIS: ACS/AMI/SEPSIS/PNEUMONIA/BRONCHITIS/ELECTROLYTE IMBALANCE/DEHYDRATION/SARS COVID RATIONALE: TESTS CONSIDERED AND ORDERED SECONDARY TO SHARED DECISION MAKING INCLUDE: LABS/EKG/RADIOLOGY PREVIOUS OUTSIDE RECORDS REVIEWED: OLD ER VISITS. RISK OF COMPLICATION AND/OR MORBIDITY OR MORTALITY OF PATIENT MANAGEMENT: NONE MEDICATIONS-PER MEDICATION RECONCILIATION NEED FOR HOSPITALIZATION: PATIENT DOES NOT MEET CRITERIA FOR HOSPITALIZATION. PATIENT REFUSED HOSPITALIZATION AT THIS TIME STATES HE WILL GO HOME AND WE WILL TAKE ORAL ANTIBIOTICS AND USE HIS ALBUTEROL NEBULIZER STATES HE IS ALREADY ON POTASSIUM NEED FOR EMERGENCY MAJOR/MINOR SURGERY: NO THERE ARE NO SOCIAL CONCERNS WITH THIS PATIENT. PRESCRIPTION DRUG MANAGEMENT ALBUTEROL MDI, LEVAQUIN PRESCRIPTIONS WILL INCLUDE SYMPTOMATIC CARE PATIENT'S PRIOR EXTERNAL MEDICAL RECORDS FROM OTHER ER VISITS WERE REVIEWED BY ME INDICATED. PRIOR TESTING AND RESULTS FROM PREVIOUS VISITS WERE REVIEWED. PRIOR TESTS WERE TAKEN INTO ACCOUNT WITH MEDICAL DECISION MAKING AND RESOURCE UTILIZATION, INDEPENDENT HISTORIAN/HISTORIANS WERE USED TO OBTAIN COMPLETE MEDICAL HISTORY. I INDEPENDENTLY INTERPRETED THE TEST THAT WERE PERFORMED, RESULTS WERE REVIEWED BY ME AND CONSIDERED FINDINGS ON RADIOLOGY IF ORDERED. MEDICAL MANAGEMENT AND EXAMINATION INTERPRETATION DISCUSSIONS WERE HAD BY ME WITH OTHER QUALIFIED HEALTHCARE PROFESSIONALS INDICATED FOR THE PATIENT'S CARE. DX & DISP Disposition: Discharge Departure Impression: Primary Impression: Bilateral pneumonia Additional Impressions: Cough, Hypokalemia, Hyponatremia Condition: Stable Scripts Albuterol Sulfate (Ventolin Hfa/Proventil Hfa/Proair Hfa) 90 Mcg Puff 2 PUFF IH Q4H for WHEEZING, #1 INHALER 0 Refills Prov: SAMARIA DE SANTIAGO NP 09/03/24 Benzonatate (Tessalon Perles) 100 Mg Cap 200 MG PO TID for cough, #60 CAP 0 Refills Prov: SAMARIA DE SANTIAGO NP 09/03/24 Levofloxacin (Levofloxacin) 500 Mg Tablet 1 TAB PO DAILY for 10 Days, #10 TAB 0 Refills Prov: SAMARIA DE SANTIAGO NP 09/03/24 Additional Instructions: FOLLOW-UP WITH PRIMARY CARE PROVIDER IN 1 TO 2 DAYS. TAKE MEDICATIONS DIRECTED HERE IN THE EMERGENCY ROOM. OKAY TO CONTINUE HOME MEDICATIONS UNLESS OTHERWISE DISCUSSED DURING YOUR VISIT IN THE EMERGENCY ROOM TODAY. RETURN TO YOUR NEAREST EMERGENCY ROOM IF SYMPTOMS WORSEN OR IF THERE IS NO IMPROVEMENT. CALL 911 IF YOU NEED IMMEDIATE ASSISTANCE. TAKE TYLENOL OR MOTRIN [id number] NEEDED AND IF NO CONTRAINDICATIONS ARE PRESENT. INCREASE ORAL HYDRATION. A WOUND CULTURE OR URINE CULTURE WAS ORDERED HERE IN THE EMERGENCY ROOM DEPARTMENT PLEASE FOLLOW-UP WITH PRIMARY CARE PROVIDER AND ADVISE THEM TO GET REPEAT PORTS FROM OUR FACILITY. IF YOU HAD ANY IRVING WRAP/SPLINTS THAT WERE APPLIED HERE, PLEASE DO NOT REMOVE THEM UNTIL YOU SEE YOUR PRIMARY CARE OR SPECIALTY. TAKE ANTIBIOTICS DIRECTED UNTIL GONE., USE ALBUTEROL INHALER EVERY 4 HOURS WHILE AWAKE FOR THE NEXT THREE DAYS. INCREASE YOUR WATER INTAKE. SEE YOUR PRIMARY CARE DOCTOR FOR FOLLOW UP. Referrals: HARISH AGUSTIN M.D. (PCP) Time of Disposition: 22:04 I have reviewed the case, and I agree with, Diagnosis and Plan SAMARIA DE SANTIAGO NP Sep 03, 2024 19:18
--- NOTE | 2024-09-03 19:22 | EKG ---
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
[2024-09-03 20:01] LABS: BASOPHILS # (AUTO) 0.03 K/uL (0.00-0.20); BASOPHILS % (AUTO) 0.5 % (0.0-5.0); EOSINOPHILS # (AUTO) 0.17 K/uL (0.00-0.70); HEMATOCRIT 43.4 % (42-54); IMMATURE GRANULOCYTE ABSOLUTE 0.02 K/uL (0-1); LYMPHOCYTES % (AUTO) 18.1 % (21.0-51.0); MEAN CORPUSCULAR HGB CONC 35.7 g/dL (32.0-36.0); MEAN CORPUSCULAR VOLUME 89.7 fL (79-99); MONOCYTES # (AUTO) 0.5 K/uL (0.1-1.0); NEUTROPHILS # (AUTO) 3.9 K/uL (1.8-7.7); PLATELET COUNT (AUTO) 147 K/uL (130-400); RED BLOOD CELL COUNT(AUTO) 4.84 MIL/uL (4.50-6.20); RED CELL DISTRIBUTION WIDTH 13.1 % (11.0-15.5); WHITE BLOOD COUNT (AUTO) 5.6 K/uL (4.8-10.8)
[2024-09-03 20:14] LABS: CREATININE 1.4 mg/dL (0.5-1.3); POTASSIUM 3.4 mmol/L (3.5-5.1)
--- NOTE | 2024-09-03 20:21 | HMCIMG ---
CHEST 1VW HISTORY: Chest pain COMPARISON: 12/19/2023 FINDINGS: A frontal projection of the chest was obtained. Mild bilateral pulmonary infiltrates are seen may be related to mild pulmonary vascular congestion with possible superimposed pneumonitis. Poststernotomy changes are seen. The heart is enlarged. Degenerative changes of the thoracolumbar spine are present. Postoperative changes are seen of the cervical spine. No evidence of aortic calcification is seen. IMPRESSION: 1. Mild bilateral pulmonary infiltrates are seen may be related to mild pulmonary vascular congestion with possible superimposed pneumonitis.
[2024-09-03 20:33] LABS: ADD UA MICROSCOPIC YES; APPEARANCE,URINE CLEAR (CLEAR); BILIRUBIN,URINE NEGATIVE (NEGATIVE); COLOR,URINE YELLOW (YELLOW); GLUCOSE, URINE (UA) NEGATIVE (NEGATIVE); KETONES,URINE NEGATIVE (NEGATIVE); LEUKOCYTE ESTERASE ,URINE NEGATIVE Leu/uL (NEGATIVE); NITRATE,URINE NEGATIVE (NEGATIVE); OCCULT BLOOD,URINE NEGATIVE (NEGATIVE); PROTEIN,URINE 70 mg/dL (NEGATIVE); UROBILINOGEN,URINE 0.2 mg/dL (0.2-1.0)
[2024-09-03 20:35] LABS: BACTERIA,URINE RARE /HPF (None Seen); MUCUS,URINE FEW LPF (None Seen); RBC,URINE 0-1 /HPF (0-1); SQUAMOUS EPITHELIAL CELL,UR RARE /HPF (0-2); WBC,URINE 0-1 /HPF (0-1); YEAST,URINE BUDDING RARE /HPF (None Seen)
[2024-09-03 20:45] LABS: B-TYPE NATRIURETIC PEPTIDE 34 pg/mL (0-100)
[2024-09-03] MEDS: PoTASSium BIcarbonate/CIT AC 25 MEQ TABLET.EFF PO ONE (21:23)
[2024-09-03] MEDS: cefTRIAXone 1G VIAL IM ONE (21:24)
[2024-09-03 21:26] VITALS: PULSE 79; RESP 18
[2024-09-03] MEDS: ALBUTEROL 0.083% 2.5 MG/3 ML INH IH ONE (21:26)
[2024-09-03] MEDS: AZITHROMYCIN 500MG+NS 250ML 250 ML IVPB STA (21:55)
--- NOTE | 2024-09-03 22:00 | NUR ---
ABX INFUSING. ONCE ABX COMPLETED PT WILL BE DISCHARGED.
[2024-09-03] MEDS ORDERED: ALBUHFA IH (22:06)
[2024-09-03] MEDS ORDERED: BENZ-39 PO (22:06)
[2024-09-03] MEDS ORDERED: LEVO-70 PO (22:06)
[2024-09-03 23:24] VITALS: BP 145/80; PULSE 83; RESP 16; O2SAT 97
== END 2024-09-03 23:26 | disposition home or self-care (01) ==
LOC: EDH 18:53
DX: J18.9 Pneumonia, unspecified organism (principal); E87.6 Hypokalemia; E87.1 Hypo-osmolality and hyponatremia; E78.00 Pure hypercholesterolemia, unspecified; I10 Essential (primary) hypertension; Z79.82 Long term (current) use of aspirin; Z79.890 Hormone replacement therapy; Z79.899 Other long term (current) drug therapy; Z90.49 Acquired absence of other specified parts of digestive tract; Z95.1 Presence of aortocoronary bypass graft; Z98.890 Other specified postprocedural states
CPT/HCPCS: 99285; 96365; 71045; 82550; 84484; 80048; 83880; 85025; 87040 ×2; 83605; 81001; 36415; 93005; 94640; 96372; J0696; J0456